=== PATIENT | male | born 1980 | race Caucasian/White ===

== ENCOUNTER 2017-04-14 14:34 | Emergency (ER) | payer BC ==
[2017-04-14] MEDS ORDERED: Lidocaine 1% with EPINEPHrine 1:100,000 20 ML MDV INJECT ONE (14:46)
[2017-04-14] MEDS ORDERED: Bacitracin Oint 1 GM U/D Packet TOP ONE (14:47)
--- NOTE | 2017-04-14 14:49 | EDM.PDOC ---
ED HPI GENERAL MEDICAL PROBLEM - General Chief Complaint: Upper Extremity Injury/Pain Stated Complaint: ACCIDENT Time Seen by Provider: 04/14/17 14:49 Source of Information: Reports: Patient, RN, RN Notes Reviewed History Limitations: Reports: No Limitations - History of Present Illness INITIAL COMMENTS - FREE TEXT/NARRATIVE: Patient lacerated his left hand with a piece of plastic, which he was cutting using a knife. He said it went in deep and bled like a fountain. He said his garage looked like a movie scene. Last tetanus was 5 or 6 years ago. Onset: Today Location: Reports: Upper Extremity, Left (hand at the base of the thenar eminence) Severity: Moderate Improves with: Reports: None Worsens with: Reports: Movement Associated Symptoms: Reports: No Other Symptoms Social & Family History - Family History Family Medical History: Noncontributory Review of Systems - Review of Systems Review Of Systems: ROS reveals no pertinent complaints other than HPI. Trauma Exam - Physical Exam Exam: See Below Exam Limited By: No Limitations General Appearance: Reports: Alert, WD/WN, No Apparent Distress Head: Reports: Atraumatic, Normocephalic Eyes: Bilateral Eye: Normal Inspection Cardiovascular: Reports: Normal Peripheral Pulses (normal left radial pulse) Extremities: Other (2.7cm laceration left hand base of thenar eminence. ) Neurologic: Reports: Normal Mood/Affect Skin: Reports: Normal Color, Warm/Dry ED TRAUMA EXTREMITY PROCEDURES - Laceration/Wound Repair Left Hand Lac/wound length in cm: 2.7 Appearance: subcutaneous, muscle, clean Distal NVT: neuro & vascular intact, other (laceration at nando base of thenar muscle) Anesthetic Type: local Local anesthesia - Lidocaine (Xylocaine): 2% plain Local anesthetic volume: 4cc Skin prep: chlorhexidine (hibiciens), isopropyl alcohol (alcohol) Exploration/Debridement/Repair: wound explored, explored to base, no foreign material found, other (deep muscle laceration base of thenar muscles. Venous oozing from the muscle. No pulsatile bleeding. ) Closed with: sutures Suture size: other (5-0 nylon) Suture type: nylon Drain placement: No Sterile dressing applied: nurse Tetanus status addressed: Yes Course - Orders/Labs/Meds Meds: Medications Discontinued Medications Generic Name Dose Route Start Last Admin Trade Name Freq PRN Reason Stop Dose Admin Bacitracin 1 dose 04/14/17 14:47 Bacitracin Oint 1 Gm TOP 04/14/17 14:48 ONETIME ONE Lidocaine HCl 30 ml 04/14/17 14:54 Xylocaine-Mpf 1% INJECT 04/14/17 14:55 ONETIME ONE Lidocaine/Epinephrine 20 ml 04/14/17 14:46 Xylocaine 1% With Epinephrine 1:100,000 INJECT 04/14/17 14:47 ONETIME ONE - Re-Assessments/Exams Free Text/Narrative Re-Assessment/Exam: 04/14/17 15:[address] Dent who recommended pressure and skin closure. He speculated there was a branch of [facility] radial artery that was lacerated, which caused the pulsatile blood flow in his garage, which the patient noticed. Departure - Departure Time of Disposition: 15:44 Disposition: Home, Self-Care 01 Condition: good Clinical Impression: Laceration of radial artery at wrist and hand level of left arm, initial encounter, Laceration of radial artery at wrist and hand level of left arm, initial encounter - Discharge Information Instructions: Laceration Care, Adult, [id number] Forms: ED Department Discharge Additional Instructions: Patient received tetanus. Follow up for suture removal in 12 days, April 26. Keep wound clean and dry. Elevate hand if there is any bleeding. Tylenol or Ibuprofen for pain.
[2017-04-14] MEDS ORDERED: Lidocaine 1% 30 ML SDV INJECT ONE (14:54)
[2017-04-14] MEDS ORDERED: Diphtheria,Pertussis(Acell),Tetanus Vaccine 0.5 ML SDV IM ONE (15:49)
[2017-04-14 16:12] VITALS: BP 136/68
== END 2017-04-14 16:07 | disposition home or self-care (01) ==
LOC: DL.ED 14:34
DX: S61.412A Laceration without foreign body of left hand, initial encounter (principal); S61.512A Laceration without foreign body of left wrist, initial encounter; Z23 Encounter for immunization; W26.0XXA Contact with knife, initial encounter
CPT/HCPCS: 12002; 90715; 99283